=== PATIENT | female | born 1990 | race Caucasian/White ===

== ENCOUNTER 2017-08-01 12:05 | Emergency (ER) | payer OTHER ==
[~2017-08-01] VITALS: Ht 170.2 cm; Wt 69.1 kg
[2017-08-01 12:17] VITALS: TEMP 98.3
[2017-08-01 12:52] LABS: BASO # 0.1 (0.0-0.2); BASO % 0.7 % (0.0-2.0); EOS # 0.1 (0.0-0.7); EOS % 1.3 % (0-4.0); GRAN # 3.8 (1.4-6.5); GRAN % 56.9 % (42.2-75.2); HEMATOCRIT 38.8 % (37.0-47.0); LYMPH # 2.4 (1.2-3.4); MEAN CELL VOLUME 85 fl (80.0-100.0); MEAN CORPUSCULAR HEMOGLOBIN 29 pg (27.0-31.0); MEAN CORPUSCULAR HGB CONC 34 g/dl (33.0-37.0); MEAN PLATELET VOLUME 10.5 fl (7.4-10.4); MONO # 0.3 (0.1-0.6); MONO % 4.8 % (1.7-9.3); PLATELET COUNT 290 K/mm3 (130-400); RED BLOOD COUNT 4.56 M/mm3 (4.10-5.30); REDCELL DISTRIBUTION WIDTH-CV 12.6 % (11.5-14.5)
[2017-08-01 13:00] LABS: ALBUMIN 4.2 gm/dL (3.5-5.0); BILIRUBIN,TOTAL 0.3 mg/dL (0.0-1.0); CALCIUM 9.6 mg/dL (8.4-10.2); CREATININE, serum 0.57 mg/dL (0.52-1.25); POTASSIUM 3.9 mmol/L (3.4-5.0); TOTAL PROTEIN 8.4 gm/dL (6.4-8.2)
[2017-08-01 14:23] VITALS: BP 148/89; PULSE 80
== END 2017-08-01 14:24 | disposition home or self-care (01) ==
LOC: COL.ER 12:05
PROVIDERS: Physician Assistant
DX: G43.909 Migraine, unspecified, not intractable, without status migrainosus (principal)
CPT/HCPCS: J1170; J1200; J2405; J7030

== ENCOUNTER 2018-03-26 11:20 | Emergency (ER) | payer OTHER ==
[~2018-03-26] VITALS: Ht 170.2 cm; Wt 68.2 kg
[2018-03-26 11:24] VITALS: TEMP 99.3
[2018-03-26] MEDS ORDERED: PRINZIDE 25 MG-1 TAB PO (11:27)
[2018-03-26] MEDS ORDERED: ORTHO-CYCLEN 351 TAB (11:27)
[2018-03-26 14:19] LABS: BASO # 0.1 (0.0-0.2); BASO % 0.6 % (0.0-2.0); EOS # 0.1 (0.0-0.7); EOS % 1.6 % (0-4.0); GRAN % 67.6 % (42.2-75.2); HEMATOCRIT 37.3 % (37.0-47.0); HEMOGLOBIN 12.9 g/dl (12.5-16.0); LYMPH # 2.3 (1.2-3.4); LYMPH % 25.5 % (20.0-51.0); MEAN CELL VOLUME 85 fl (80.0-100.0); MEAN CORPUSCULAR HEMOGLOBIN 29 pg (27.0-31.0); MEAN CORPUSCULAR HGB CONC 35 g/dl (33.0-37.0); MEAN PLATELET VOLUME 10.5 fl (7.4-10.4); MONO # 0.4 (0.1-0.6); MONO % 4.5 % (1.7-9.3); PLATELET COUNT 274 K/mm3 (130-400); RED BLOOD COUNT 4.39 M/mm3 (4.10-5.30); REDCELL DISTRIBUTION WIDTH-CV 12.3 % (11.5-14.5)
[2018-03-26 14:29] LABS: COLLECTION METHOD CLEAN CATCH
[2018-03-26 14:29] LABS: ALBUMIN 4.3 gm/dL (3.5-5.0); BILIRUBIN,TOTAL 0.3 mg/dL (0.0-1.0); CALCIUM 9.9 mg/dL (8.4-10.2); CREATININE, serum 0.59 mg/dL (0.52-1.25); POTASSIUM 3.9 mmol/L (3.4-5.0); TOTAL PROTEIN 7.4 gm/dL (6.4-8.2)
[2018-03-26 14:54] LABS: AMORPHOUS CRYSTAL Present /uL; BUDDING YEAST Present /hpf; MUCOUS Present /lpf; PH 7 (5-8); SQUAMOUS EPITHELIAL 0-2 /hpf; URINE APPEARANCE Cloudy; URINE BACTERIA Rare /hpf; URINE BILIRUBIN Negative (NEGATIVE); URINE BLOOD Negative (NEGATIVE); URINE COLOR Yellow; URINE GLUCOSE Negative (NEGATIVE); URINE KETONE Negative (NEGATIVE); URINE LEUKOCYTE ESTERASE Negative (NEGATIVE); URINE NITRATE Negative (NEGATIVE); URINE PROTEIN(semi-quant) Negative (NEGATIVE); URINE RBC 0-2 /hpf; URINE UROBILINOGEN Negative (NEGATIVE)
[2018-03-26] MEDS ORDERED: ZOFRAN 4MG T4 MG/TAB PO (16:11)
[2018-03-26] MEDS ORDERED: NORCO 325 MG-51 TAB PO (16:11)
[2018-03-26 16:29] VITALS: BP 101/66; PULSE 75
== END 2018-03-26 16:32 | disposition home or self-care (01) ==
LOC: COL.ER 11:20
PROVIDERS: Emergency Medicine
DX: K52.9 Noninfective gastroenteritis and colitis, unspecified (principal); I10 Essential (primary) hypertension; Z79.1 Long term (current) use of non-steroidal anti-inflammatories (NSAID); Z90.49 Acquired absence of other specified parts of digestive tract
CPT/HCPCS: J1170; J2405; J7030; Q9967

== ENCOUNTER → 2018-05-08 | Outpatient (CLI) | payer OTHER ==
[~2018-05-08] MED LIST: NORCO 325 MG-51 TAB PO; ORTHO-CYCLEN 351 TAB; PRINZIDE 25 MG-1 TAB PO; ZOFRAN 4MG T4 MG/TAB PO
[2018-05-08 08:57] LABS: BASO # 0.1 (0.0-0.2); BASO % 1.1 % (0.0-2.0); EOS # 0.1 (0.0-0.7); EOS % 1.8 % (0-4.0); GRAN # 3.6 (1.4-6.5); HEMATOCRIT 41.2 % (37.0-47.0); MEAN CELL VOLUME 86 fl (80.0-100.0); MEAN CORPUSCULAR HEMOGLOBIN 29 pg (27.0-31.0); MEAN CORPUSCULAR HGB CONC 34 g/dl (33.0-37.0); MEAN PLATELET VOLUME 10.7 fl (7.4-10.4); MONO # 0.3 (0.1-0.6); MONO % 5.5 % (1.7-9.3); PLATELET COUNT 317 K/mm3 (130-400); RED BLOOD COUNT 4.82 M/mm3 (4.10-5.30); REDCELL DISTRIBUTION WIDTH-CV 12.8 % (11.5-14.5)
[2018-05-08 09:15] LABS: ALBUMIN 4.6 gm/dL (3.5-5.0); BILIRUBIN,TOTAL 0.5 mg/dL (0.0-1.0); CALCIUM 9.9 mg/dL (8.4-10.2); CREATININE, serum 0.64 mg/dL (0.52-1.25); POTASSIUM 3.7 mmol/L (3.4-5.0); TOTAL PROTEIN 7.9 gm/dL (6.4-8.2)
== END ==
LOC: COL.RAD 08:35
PROVIDERS: Physician Assistant
DX: R11.2 Nausea with vomiting, unspecified (principal); R10.9 Unspecified abdominal pain; R19.7 Diarrhea, unspecified

== ENCOUNTER → 2018-05-29 | Outpatient (CLI) | payer OTHER | LOC: ZCOL.LAB 17:46 | DX: N91.2 Amenorrhea, unspecified (principal) ==

== ENCOUNTER → 2018-08-15 | Outpatient (CLI) | payer BC | LOC: COL.RAD 09:49 | DX: E78.70 Disorder of bile acid and cholesterol metabolism, unspecified (principal); R19.7 Diarrhea, unspecified | CPT/HCPCS: A9537 ==

== ENCOUNTER 2018-09-11 06:18 | Day surgery (SDC) | payer BC ==
[2018-09-11] VITALS (7 sets, daily range): BP systolic 105–134; BP diastolic 62–80; PULSE 59–85; TEMP 98.1
[~2018-09-11] VITALS: Ht 170.2 cm; Wt 69.7 kg
[2018-09-11] MEDS ORDERED: PRIL40 PO (06:55)
[2018-09-11] MEDS ORDERED: HYGROTON 2525 MG/TAB PO (06:55)
[2018-09-11] MEDS ORDERED: RELPAX 40MG TAB40 MG PO (06:56)
[2018-09-11] MEDS ORDERED: PRENATAL FORMU1 EAC3 PO (06:56)
[2018-09-11] MEDS ORDERED: FIBER0.52 GM PO (06:57)
[2018-09-11] MEDS ORDERED: PROBIOTIC FORMU1 CAP PO (06:58)
[2018-09-11] MEDS ORDERED: STOOL SOFTENER100 M2 PO (06:58)
[2018-09-11] MEDS ORDERED: MIRALAX119G PO (06:59)
--- NOTE | 2018-09-11 07:01 | NUR ---
TO RM 7 AT 0627- CALL LIGHT IN REACH AT BEDSIDE.
[2018-09-11] MEDS ORDERED: MOTRIN 600600 MG/TAB PO (10:06)
[2018-09-11] MEDS ORDERED: ZOFRAN ODT4 MG PO (10:06)
[2018-09-11] MEDS ORDERED: COLACE 100100 MG/CAP PO (10:06)
[2018-09-11] MEDS ORDERED: NORCO 325 MG-51 TAB PO (10:07)
--- NOTE | 2018-09-11 11:20 | NUR ---
RECEIVED WATER AND TAKING SIPS. RECEIVED CRACKERS. C/O PAIN 07/04- RECEIVED NORCO 5MG 1 TAB DENIES N/V
--- NOTE | 2018-09-11 11:40 | NUR ---
TO RM 7 PER CART FROM PACU. ALERT ORIENTED X3, TALKING WITH STAFF AND . C/O SLIGHT NAUSEA. DENIES PAIN OR DISCOMFORT AT THIS TIME. PATIENT RESTING QUIETLY BAND AIDES INTACT. NO DRAINAGE.
--- NOTE | 2018-09-11 12:00 | NUR ---
UP AMBULATED TO BATHROOM. VOIDED AND TOLERATED WELL.
--- NOTE | 2018-09-11 12:15 | NUR ---
RECEIVED DISCHARGE INSTRUCTIONS AND VERBALIZED UNDERSTANDING.( AT BEDSIDE) DISCONTINUED IV AND INT- CATHETER INTACT
--- NOTE | 2018-09-11 12:30 | NUR ---
DISCHARGED PER WC BY NURSING STAFF TO PRIVATE CAR IN CARE OF .
== END 2018-09-11 12:30 | disposition home or self-care (01) ==
LOC: SDCO 06:18
DX: K81.1 Chronic cholecystitis (principal); K82.8 Other specified diseases of gallbladder; K21.9 Gastro-esophageal reflux disease without esophagitis; I10 Essential (primary) hypertension; Z79.899 Other long term (current) drug therapy
CPT/HCPCS: J1100; J1885; J2405; J2550; J2704; J2765; J3010; J7120; Q9967

== ENCOUNTER → 2018-11-13 | Outpatient (CLI) | payer BC ==
[~2018-11-13] MED LIST changes: +COLACE 100100 MG/CAP PO; +FIBER0.52 GM PO; +HYGROTON 2525 MG/TAB PO; +MIRALAX119G PO; +MOTRIN 600600 MG/TAB PO; +PRENATAL FORMU1 EAC3 PO; +PRIL40 PO; +PROBIOTIC FORMU1 CAP PO; +RELPAX 40MG TAB40 MG PO; +STOOL SOFTENER100 M2 PO; +ZOFRAN ODT4 MG PO
[2018-11-13 11:06] LABS: HEMATOCRIT 40.9 % (37.0-47.0); MEAN CELL VOLUME 85 fl (80.0-100.0); MEAN CORPUSCULAR HEMOGLOBIN 29 pg (27.0-31.0); MEAN CORPUSCULAR HGB CONC 34 g/dl (33.0-37.0); MEAN PLATELET VOLUME 10.1 fl (7.4-10.4); PLATELET COUNT 271 K/mm3 (130-400); RED BLOOD COUNT 4.82 M/mm3 (4.10-5.30); REDCELL DISTRIBUTION WIDTH-CV 12.1 % (11.5-14.5)
[2018-11-13 11:15] LABS: ALBUMIN 4.6 gm/dL (3.5-5.0); BILIRUBIN,TOTAL 0.6 mg/dL (0.0-1.0); CALCIUM 9.5 mg/dL (8.4-10.2); CREATININE, serum 0.51 (0.52-1.25); POTASSIUM 4.2 mmol/L (3.4-5.0)
[2018-11-13 11:30] LABS: BAND 8 % (0-10); EOSINOPHIL 3 % (0-4); LYMPHOCYTE 38 % (20.0-51.0); NEUTROPHILS 49 % (42.0-75.2); PLATELET ESTIMATE NORMAL (NORMAL)
== END ==
LOC: COL.RAD 09:20
PROVIDERS: Physician Assistant
DX: R19.7 Diarrhea, unspecified (principal); R10.9 Unspecified abdominal pain; Z90.49 Acquired absence of other specified parts of digestive tract